=== PATIENT | male | born 1940 | race Two or more races ===

== ENCOUNTER → 2024-10-03 | Outpatient (CLI) | payer MEDICARE, SELFPAY ==
[2024-10-03 08:48] LABS: Basophils # (Auto) 0.1 Thou/mm3 (0.0-0.2); Basophils % (Auto) 1 % (0-2.5); Eosinophils # (Auto) 0.2 Thou/mm3 (0.0-0.5); Eosinophils % (Auto) 2 % (0-10); Hematocrit 44.7 % (41.0-53.0); Hemoglobin 14.4 g/dL (13.5-16.0); Immature Granulocytes % (Auto) 0 % (0-0); Immature Granulocytes Auto 0.03 Thou/mm3 (0.00-0.00); Lymphocytes # (Auto) 3.8 Thou/mm3 (1.0-4.8); Lymphocytes % (Auto) 48 % (10-50); Mean Corpuscular HGB Conc 32.2 g/dl (31.0-37.0); Mean Corpuscular Hemoglobin 26.2 pg (25.0-35.0); Mean Corpuscular Volume 81 fL (80-100); Monocytes # (Auto) 0.6 Thou/mm3 (0.0-0.8); Monocytes % (Auto) 7 % (0-12); Neutrophils # (Auto) 3.3 Thou/mm3 (1.8-7.7); Neutrophils % (Auto) 42 % (37-80); Nucleated Red Blood Cell % 0 /100 WBC (0); Platelet Count 319 Thou/mm3 (140-440); RDW Standard Deviation 44.5 fL (35.1-43.9); White Blood Count 7.9 Thou/mm3 (3.8-10.6)
[2024-10-03 09:15] LABS: Alanine Aminotransferase 25 U/L (10-49); Albumin, Serum 4.5 gm/dL (3.4-4.8); Alkaline Phosphatase 98 U/L (46-116); Anion Gap 7 (7-16); Aspartate Amino Transferase 22 U/L (0-34); BUN/Creatinine Ratio 15 Ratio (12-20); Bilirubin,Direct 0.5 mg/dL (0.0-0.3); Bilirubin,Total 1.8 mg/dL (0.3-1.2); Blood Urea Nitrogen 15 mg/dL (9-23); Calcium 9.4 mg/dL (8.3-10.6); Carbon Dioxide 28.9 mMol/L (20.0-31.0); Cardiac Risk Estimate 2.5 RATIO (4.0-6.7); Chloride 104 mMol/L (98-107); Cholesterol 150 mg/dL (132-200); Free T4 (Free Thyroxine) 1.22 ng/dL (0.89-1.76); Glucose 127 mg/dL (74-106); HDL Cholesterol 60 mg/dL (40-60); LDL Cholesterol,Calculated 59 mg/dL (0-130); Osmolality,Calculated 282 (275-295); Potassium 4.1 mMol/L (3.4-5.1); Sodium 140 mMol/L (136-145); Thyroid Stimulating Hormone 5.01 uIU/mL (0.55-4.78); Triglycerides 155 mg/dL (30-150); eGFR > 60 See Note
== END | disposition home or self-care (01) ==
PROVIDERS: PCP Family Medicine; Referring Provider Internal Medicine Cardiovascular Disease; Visit Provider Internal Medicine Cardiovascular Disease
DX: I10 Essential (primary) hypertension (principal); E78.5 Hyperlipidemia, unspecified; E07.9 Disorder of thyroid, unspecified
CPT/HCPCS: 36415; 80048; 80061; 80076; 84439; 84443; 85025

== ENCOUNTER 2025-01-04 08:02 | Inpatient (IN) | payer MEDICARE, MEDICAID, SELFPAY ==
[2025-01-04] VITALS (7 sets, daily range): BP systolic 130–175; BP diastolic 63–88; PULSE 63–85; RESP 16–20; TEMP 37–37.4; O2SAT 94–96; BMI 26.2; BMI 25.9
--- NOTE | 2025-01-04 08:56 | PD.EDRME ---
Rapid Medical Screening Exam RME Arrival date/time: 01/04/25 08:02 This is an 84-year-old male that comes in with complaints of lower abdominal pain and diarrhea. Patient states this started yesterday. Patient states that he started noticing that his stool started looking red. 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 Patient does not remember exactly what they did but he stated he got treatment for this in [facility]. Patient has a history of hyperlipidemia. I have greeted and performed a focused initial assessment of this patient. Initial appropriate labs ordered at this time. A comprehensive ED assessment and evaluation of the patient and analysis of all test and completion of medical decision making process will be conducted by additional ED provider. Chief Complaint: Abdominal Pain Time Seen by Provider: 01/04/25 08:18 Vital signs: Vital Signs Temperature 98.6 F 01/04/25 08:30 Pulse Rate 80 01/04/25 08:30 Respiratory Rate 18 01/04/25 08:30 Blood Pressure 165/78 H 01/04/25 08:30 Pulse Oximetry (%) 95 01/04/25 08:30 Oxygen Delivery Method Room Air 01/04/25 08:30
[2025-01-04 09:52] LABS: Collection Type, Urine Voided
[2025-01-04 09:59] LABS: Bacteria,Urine Rare; Bilirubin,Urine Negative (Negative); Blood,Urine Trace (Negative); Color,Urine Yellow (Lt Yel-Yel); Culture Indicated,Urine Not Indicated; Glucose, Urine Trace (Negative); Hyaline Casts,Urine < 1 /hpf (0-1); Ketones,Urine Trace (Negative); Leukocyte Esterase,Urine Negative (Negative); Nitrite,Urine Negative (Negative); Protein,Urine 1+ (Neg - Trace); RBC,Urine 3 /hpf (0-3); Specific Gravity,Urine 1.031 (1.001-1.035); Squamous Epithelial Cell,Urine < 1 /hpf (0-5); Urobilinogen,Urine Negative mg/dL (0.0-1.0); WBC,Urine 1 /hpf (0-5)
[2025-01-04 10:01] LABS: Clarity,Urine Hazy (Clear/Hazy)
[2025-01-04 10:13] LABS: Basophils # (Auto) 0.1 Thou/mm3 (0.0-0.2); Basophils % (Auto) 0 % (0-2.5); Eosinophils % (Auto) 0 % (0-10); Hematocrit 46.7 % (41.0-53.0); Hemoglobin 15.5 g/dL (13.5-16.0); Immature Granulocytes % (Auto) 1 % (0-0); Immature Granulocytes Auto 0.19 Thou/mm3 (0.00-0.00); Lymphocytes # (Auto) 1.6 Thou/mm3 (1.0-4.8); Lymphocytes % (Auto) 9 % (10-50); Mean Corpuscular HGB Conc 33.2 g/dl (31.0-37.0); Mean Corpuscular Hemoglobin 26.5 pg (25.0-35.0); Mean Corpuscular Volume 80 fL (80-100); Monocytes # (Auto) 1.5 Thou/mm3 (0.0-0.8); Monocytes % (Auto) 8 % (0-12); Neutrophils # (Auto) 14.9 Thou/mm3 (1.8-7.7); Neutrophils % (Auto) 82 % (37-80); Nucleated Red Blood Cell % 0 /100 WBC (0); Platelet Count 269 Thou/mm3 (140-440); RDW Standard Deviation 42.3 fL (35.1-43.9); Red Blood Count 5.86 Miln/mm3 (4.50-5.90); White Blood Count 18.3 Thou/mm3 (3.8-10.6)
--- NOTE | 2025-01-04 10:20 | XR_ITS ---
Examination: CT abdomen with intravenous contrast CT pelvis with intravenous contrast 2-D coronal reconstructions 2-D sagittal reconstructions Date and time of exam:January 04, 2025 11:24 AM Comparison March 02, 2022 INDICATIONS: Mid abdominal pain rectal bleeding diarrhea beginning 2 days ago, history enlarged common hepatic common bile duct on CT study March 02, 2022. CTDI: vol (mGy) 12.6 DLP: (mGycm) Technique: Multiple axial sections of the abdomen and pelvis have been obtained. 64 slice high-resolution scanner used. 3 mm axial sections have been obtained, post intravenous injection of 60 cc Isovue 370 2-D sagittal, coronal reconstructions obtained. Low dose protocols were performed. One or more of the following dose reduction techniques were used; automated exposure control, adjustment of the mA and/or KV according to patient size, use of iterative reconstruction technique. Findings: Pneumobilia Common hepatic duct 14 mm no definite common hepatic duct or common bile duct stones Spleen is not enlarged No pancreatic or adrenal mass Markedly abnormal colon diffuse wall thickening and inflammatory change 20 mm fat containing of the liver. Normal appendix No bowel obstruction Mild free fluid around the colon in the pelvis Distended urinary bladder Transrectal prostate dimension 5.2 cm IMPRESSION: Enlarged common hepatic common bile duct, recommend hepatobiliary sonography follow-up Diffuse prominent nonspecific colitis pattern, differential would include ulcerative colitis, regional enteritis Normal appendix Significant prostatomegaly
[2025-01-04 10:34] LABS: Alanine Aminotransferase 24 U/L (10-49); Albumin, Serum 4.4 gm/dL (3.4-4.8); Albumin/Globulin Ratio 1.6 (1.2-2.2); Alkaline Phosphatase 82 U/L (46-116); Anion Gap 8 (7-16); Aspartate Amino Transferase 23 U/L (0-34); BUN/Creatinine Ratio 13 Ratio (12-20); Bilirubin,Total 3.6 mg/dL (0.3-1.2); Blood Urea Nitrogen 13 mg/dL (9-23); Calcium 8.8 mg/dL (8.3-10.6); Calcium (Corrected) 8.8 mg/dL (8.5-10.1); Carbon Dioxide 26.2 mMol/L (20.0-31.0); Chloride 104 mMol/L (98-107); Estimated Creatinine Clearance 51.4 mL/min (>60); Globulin 2.8 gm/dL (2.3-3.5); Glucose 171 mg/dL (74-106); Osmolality,Calculated 279 (275-295); Potassium 4.4 mMol/L (3.4-5.1); Sodium 138 mMol/L (136-145); Total Protein 7.2 gm/dL (5.7-8.2); eGFR > 60 See Note
[2025-01-04 10:38] LABS: INR 1.1 (0.9-1.3); Partial Thromboplastin Time 28.4 Seconds (22.0-36.0); Prothrombin Time 12.1 Seconds (9.0-12.2)
[2025-01-04 10:40] LABS: Lactate (Lactic Acid) 1.8 mMol/L (0.4-2.0)
--- NOTE | 2025-01-04 11:47 | XR_ITS ---
Examination: Abdomen sonogram, Limited Date and time of exam: January 04, 2025 1205 hours INDICATIONS: Elevated bilirubin bloody stools beginning 2 days ago Technique: Real-time ramirez scale transabdominal sonographic images of the upper abdomen obtained. Findings: Absent gallbladder Common bile duct 0.4 cm Pancreatic head 3.0 cm Liver 14.1 cm irregular contour fatty infiltration no focal liver lesions Normal hepatopedal portal venous flow Patent IVC IMPRESSION: Absent gallbladder Normal common bile duct Fatty liver primary hepatocellular disease
--- NOTE | 2025-01-04 12:59 | EDNOTE_ITS ---
ED Abdominal Pain RME/HPI General Chief Complaint: Abdominal Pain Stated complaint: STOMACH PAIN/RED DIARRHEA SINCE YESTERDAY Time seen by provider: 01/04/25 08:18 Arrival date/time: 01/04/25 08:02 RME / HPI RME / HPI narrative: 01/04/25 08:02 This is an 84-year-old male that comes in with complaints of lower abdominal pain and diarrhea. Patient states this started yesterday. Patient states that he started noticing that his stool started looking red. 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 Patient does not remember exactly what they did but he stated he got treatment for this in [facility]. Patient has a history of hyperlipidemia. I have greeted and performed a focused initial assessment of this patient. Initial appropriate labs ordered at this time. A comprehensive ED assessment and evaluation of the patient and analysis of all test and completion of medical decision making process will be conducted by additional ED provider. DR. SIDDIQI MAIN ED EVALUATION: 84 year old male with history of hyperlipidemia was presented to the ER with chief complaint of abdominal pain and diarrhea with red blood. Per patient, his pain in his abdomen is diffused, beginning 01/03/27 but is better now. Patient stated he was nausea and had diarrhea every 30 minutes beginning also on 01/03/27. Patient denies chills, fever, and vomiting. Patient denies similar symptoms in the past. Related Data Home Medications ?Medication ?Instructions ?Recorded ?Confirmed atorvastatin 20 mg tablet 10 mg PO QDAY 05/22/2005/22 loratadine 10 mg tablet (Claritin) 10 mg PO QDAY 05/2205/22/20 Allergies Allergy/AdvReac Type Severity Reaction Status Date / Time No Known Allergies Allergy Verified 01/04/25 08:10 Review of Systems Review of Systems Systems Reviewed: All systems reviewed, normal except as documented Narrative Review of Systems: ROS Gen: No fever, no chills, no weight loss EYES: No discharge, no visual changes, no pain HEENT: No ear pain, no congestion, no sore throat PULM: No shortness of breath, no cough, no congestion CV: No chest pain, no dyspnea on exertion, no palpitations GI: +nausea, no vomiting, + red blood diarrhea, + abdominal pain, no constipation : No frequency, no urgency, no dysuria Musc/skel: No joint pain, no back pain Skin: No rash Psyc: No hallucinations, no depression Heme/Lymph: No easy bleeding or bruising tendencies Neuro: No weakness, no headache Past Medical History Past Medical History CARDIAC: Positive Hypercholesterolemia GENITOURINARY: Positive Kidney Stones Social History SMOKING STATUS: Former smoker ED Exam Narrative Physical exam: GENERAL APPEARANCE: alert and oriented x 4, well-developed, well-nourished, no acute distress HEENT: Normocephalic, atraumatic; pupils equal, round, reactive to light; EOMI; mucous membranes pink, moist; oropharynx clear NECK: Supple LUNGS: CTABL; no wheezes, no rales, no rhonchi HEART: Regular rate, regular rhythm; normal S1, S2; no murmurs ABDOMEN: non distended; normal BS; soft, RUQ tenderness, mild voluntary guarding, no rebound; no masses, no organomegaly, no hernia BACK: no CVA tenderness EXTREMITIES: atraumatic; no edema NEUROLOGIC: awake; alert and oriented x4; cranial nerves II-XII grossly intact; no focal sensory or motor deficits PSYCHIATRIC: appropriate mood and affect SKIN: warm, dry, normal color; no rashes Course Quality Measures none Orders Category Date Time Status Admit to Inpatient Status Routine Admission 01/04/25 13:37 Active Patient Condition Routine Admission 01/04/25 13:[address] Screening NOW Care 01/04/25 10:20 Active Miscellaneous Nursing Order NOW Care 01/04/25 13:37 Active Notify provider NEEDED Care 01/04/25 13:[address] abdomen pelvis w con Stat Exams 01/04/25 10:20 Completed US abdomen limited Stat Exams 01/04/25 11:47 Completed CBC Stat Lab 01/04/25 09:51 Completed Comprehensive Metabolic Panel Stat Lab 01/04/25 09:51 Completed Lactate (Lactic Acid) Stat Lab 01/04/25 10:32 Completed PT [Prothrombin Time with INR] Stat Lab 01/04/25 09:51 Completed Partial Thromboplastin Time Stat Lab 01/04/25 09:51 Completed Type and Screen Stat Lab 01/04/25 09:51 Completed Urinalysis, C/S if Indicated Stat Lab 01/04/25 09:41 Completed Piper/Tazo 3.375 gm Premix [Zosyn] Med 01/04/25 12:53 Discontinued 3.375 gm in 50 ml IV X1 Code Status Routine Oth 01/04/25 13:34 Ordered Vital Signs Vital signs: Vital Signs Temperature 98.6 F 01/04/25 08:30 Pulse Rate 80 01/04/25 08:30 Respiratory Rate 18 01/04/25 08:30 Blood Pressure 165/78 H 01/04/25 08:30 Pulse Oximetry (%) 95 01/04/25 08:30 Oxygen Delivery Method Room Air 01/04/25 08:30 Abdominal Pain MDM MDM Narrative MDM Narrative:: I, Stella Coy am scribing for and in the presence of Dr. Siddiqi. Patient data External records reviewed:: [facility] previous records Clinical information provided by:: patient Social determinants that could affect healthcare access:: none Patient has the following chronic illnesses:: hyperlipidemia How is presenting disease/condition affected by chronic disease/condition?: uneffected by Evaluation data The following diagnostics were reviewed and interpreted by me:: lab results and radiology exam(s) Lab and/or radiology exams considered but not ordered:: none Interpretation Summary: Ordering Physician: Ashlie Siddiqi MD Date of Service: 01/04/25 Procedure(s): US abdomen limited Accession Number(s): [id number] cc: Saulo Garcia MD; Milton Hidalgo MD; Ashlie Siddiqi MD~ Examination: Abdomen sonogram, Limited Date and time of exam: January 04, 2025 1205 hours INDICATIONS: Elevated bilirubin bloody stools beginning 2 days ago Technique: Real-time ramirez scale transabdominal sonographic images of the upper abdomen obtained. Findings: Absent gallbladder Common bile duct 0.4 cm Pancreatic head 3.0 cm Liver 14.1 cm irregular contour fatty infiltration no focal liver lesions Normal hepatopedal portal venous flow Patent IVC IMPRESSION: Absent gallbladder Normal common bile duct Fatty liver primary hepatocellular disease Dictated By: Milton Hidalgo MD Signed By: <Electronically signed by Milton Hidalgo MD in OV> 01/04/25 1228 Ordering Physician: Ashlie Siddiqi MD Date of Service: 01/04/25 Procedure(s): CT abdomen pelvis w con Accession Number(s): [id number] cc: Saulo Garcia MD; Milton Hidalgo MD; Ashlie Siddiqi MD~ Examination: CT abdomen with intravenous contrast CT pelvis with intravenous contrast 2-D coronal reconstructions 2-D sagittal reconstructions Date and time of exam:January 04, 2025 11:24 AM Comparison March 02, 2022 INDICATIONS: Mid abdominal pain rectal bleeding diarrhea beginning 2 days ago, history enlarged common hepatic common bile duct on CT study March 02, 2022. CTDI: vol (mGy) 12.6 DLP: (mGycm) 4/78 Technique: Multiple axial sections of the abdomen and pelvis have been obtained. 64 slice high-resolution scanner used. 3 mm axial sections have been obtained, post intravenous injection of 60 cc Isovue 370 2-D sagittal, coronal reconstructions obtained. Low dose protocols were performed. One or more of the following dose reduction techniques were used; automated exposure control, adjustment of the mA and/or KV according to patient size, use of iterative reconstruction technique. Findings: Pneumobilia Common hepatic duct 14 mm no definite common hepatic duct or common bile duct stones Spleen is not enlarged No pancreatic or adrenal mass Markedly abnormal colon diffuse wall thickening and inflammatory change 20 mm fat containing of the liver. Normal appendix No bowel obstruction Mild free fluid around the colon in the pelvis Distended urinary bladder Transrectal prostate dimension 5.2 cm IMPRESSION: Enlarged common hepatic common bile duct, recommend hepatobiliary sonography follow-up Diffuse prominent nonspecific colitis pattern, differential would include ulcerative colitis, regional enteritis Normal appendix Significant prostatomegaly Dictated By: Milton Hidalgo MD Signed By: <Electronically signed by Milton Hidalgo MD in OV> 01/04/25 1206 Medications / Prescriptions Medications or Prescriptions considered but not ordered:: none Medication administrations:: Medication Administration History Acetaminophen (Acetaminophen 325 Mg Tablet) 650 mg PO Q6H PRN PRN Reason: Fever >100.4 or pain Stop: 02/03/25 13:38 Ondansetron HCl (Ondansetron Inj 2 Mg/Ml Inj 2 Ml) 4 mg IV Q6H PRN; Protocol PRN Reason: NAUSEA OR VOMITING Stop: 02/03/25 13:38 Discontinued Medications Piperacillin/Tazobactam/Dextrose (Zosyn) 3.375 gm in 50 mls @ 100 mls/hr IV X1 ONE Stop: 01/04/25 13:22 Last Infusion: 01/04/25 13:30 Dose: Infused Documented By: Admin: 01/04/25 13:02 Dose: 100 mls/hr Documented By: RODGER see above. Consultations Consultation(s) initiated? (list below): Yes Consultation #1 (Physician, Specialty, Details): Admission Resident working with Dr. Heller was made aware of the patient?s HPI, PMHx, lab and/or radiology results. Treatment plan was discussed. Will admit for further evaluation and management. Accepts patient for admission. Time: 12:56 Diagnosis Differential diagnosis abdominal pain: abdominal pain, endometriosis and gastroenteritis Most likely diagnosis given after review of the tests above:: Colitis with rectal bleeding, Leukocytosis Admission Indicated Admission indicated?: indicated Admission Request Was there a request for admission?: Yes Admission Attestation Admission request attestation: Discussed case with [] from Hospitalist service regarding admission. Discussed patients ED course, exam findings, labs, and radiology results. The Hospitalist [agrees,declines] to accept the patient for admission. Disposition Plan Disposition Plan: Admit Discharge Plan Plan Patient Disposition: Admit Acute Care w/in Hospital Problem List Clinical Impression: Colitis with rectal bleeding, Leukocytosis
[2025-01-04] MEDS: PIPER/TAZO 3.375 GM PREMIX 3.375 GM/50 ML BAG IV (13:02)
--- NOTE | 2025-01-04 16:35 | PD.RESHP ---
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 Patient states his UC felt till yesterday when he had many frequent episodes of watery diarrhea. Episodes continued today, patient endorses bright red blood in the more recent bowel movements. Of note, patient recent completed course of amoxicillin for molar infection. Patient denies recent travel, sick contacts, trying new or unusual foods. Patient denies fevers, chills, chest pain, shortness of breath, nausea, vomiting, decreased appetite, abdominal pain. ED COURSE: Labs significant for: WBC 18.3, BUN 13, creatinine 1.0, EGFR greater than 60, lactic acid 1.8, T. bili 3.6. Imaging significant for: CT A/P showing diffuse colitis with free fluid around the colon, distended urinary bladder with significant prostatomegaly. Patient received Zosyn in the ED. PMH: Cholecystocolonic fistula with gallstone ileus, hyperlipidemia PSH: States he had a laparoscopic cholecystectomy, possible procedures relating to gallstone ileus at the same time. SH: Quit smoking 1967, quit drinking 20 years ago, denies any illicit drug use. Allergies:?NKDA Medications: Atorvastatin, Claritin, misoprostol Review of Systems Review of Systems Systems Reviewed: All systems reviewed, normal except as documented Past Medical History Past Medical History Comments PMH COMMENT: PMH: Cholecystocolonic fistula with gallstone ileus, hyperlipidemia PSH: States he had a laparoscopic cholecystectomy, possible procedures relating to gallstone ileus at the same time. SH: Quit smoking 1967, quit drinking 20 years ago, denies any illicit drug use. Allergies:?NKDA Medications: Atorvastatin, Claritin, misoprostol Exam Vital Signs Temp Pulse Resp BP Pulse Ox O2 Del Method 98.8 F 65 16 143/63 H 95 Room Air 01/04/25 16:18 01/04/25 16:18 01/04/25 16:18 01/04/25 16:18 01/04/25 16:18 01/04/25 16:18 Narrative Exam PE: Gen: Well-developed and well-nourished. HEENT: NCAT, PERRLA, EOMI, MMM, anicteric conjunctivae. CVS: normal S1 and S2. RRR. No M/R/G. Resp: CTA B/L. No rhonchi, rales, crackles or wheezing. Abd: soft. Bilateral lower quadrant tenderness. MSK: Good ROM in BUE & BLE. No edema or rash. Neuro: CN II-XII grossly intact. Strength 5/5 in BUE & BLE. Alert and oriented x3. Psych: appropriate mood and affect. Results: Labs 01/05/25 04:25 01/05/25 04:25 Labs: Short CBC 01/04/25 Range/Units 09:51 WBC 18.3 H (3.8-10.6) Thou/mm3 Hgb 15.5 (13.5-16.0) g/dL Hct 46.7 (41.0-53.0) % Plt Count 269 (140-440) Thou/mm3 BMP 01/04/25 09:51 Sodium 138 Potassium 4.4 Chloride 104 Carbon Dioxide 26.2 BUN 13 Creatinine 1.0 Glucose 171 H Calcium 8.8 Liver Function 01/04/25 Range/Units 09:51 Total Bilirubin 3.6 H (0.3-1.2) mg/dL AST 23 (0-34) U/L ALT 24 (10-49) U/L Alkaline Phosphatase 82 (46-116) U/L Albumin 4.4 (3.4-4.8) gm/dL Urine 01/04/25 Range/Units 09:41 Urine Color Yellow (Lt Yel-Yel) Urine Clarity Hazy (Clear/Hazy) Urine pH 6.0 (5.0-7.0) Ur Specific [place] 1.031 (1.001-1.035) Urine Protein 1+ A (Neg - Trace) Urine Glucose (UA) Trace (Negative) Quality Measures Quality Measures VTE prophylaxis Advance care planning discussed with:: patient Medications Home Medications and Allergies Home Medications ?Medication ?Instructions ?Recorded ?Confirmed ?Type atorvastatin 20 mg tablet 10 mg PO QDAY 05/22/20 01/04/25 History loratadine 10 mg tablet (Claritin) 10 mg PO QDAY 05/22/20 01/04/25 History misoprostol 200 mcg tablet 100 mcg PO QDAY 01/04/25 01/04/25 History Allergies Allergy/AdvReac Type Severity Reaction Status Date / Time No Known Allergies Allergy Verified 01/04/25 08:10 Visit Medications Acetaminophen (Acetaminophen 325 Mg Tablet) 650 mg PO Q6H PRN PRN Reason: Fever >100.4 or pain Stop: 02/03/25 13:38 Ciprofloxacin (Ciprofloxacin Hcl 250 Mg Tablet) 500 mg PO BID MARCELINA Stop: 01/11/25 20:59 Hydralazine HCl (Hydralazine Inj 20 Mg/Ml Vial) 10 mg IV X1 PRN PRN Reason: SBP > 180 Stop: 02/03/25 16:04 Metronidazole (Flagyl 500 Mg Iv) 500 mg in 100 mls @ 200 mls/hr IV Q8HR MARCELINA Stop: 01/11/25 16:03 Lactated Ringer's (Lactated Ringers) 1,000 mls @ 75 mls/hr IV .[id number] ONE Stop: 01/05/25 05:24 Ondansetron HCl (Ondansetron Inj 2 Mg/Ml Inj 2 Ml) 4 mg IV Q6H PRN; Protocol PRN Reason: NAUSEA OR VOMITING Stop: 02/03/25 13:38 Discontinued Medications Piperacillin/Tazobactam/Dextrose (Zosyn) 3.375 gm in 50 mls @ 100 mls/hr IV X1 ONE Stop: 01/04/25 13:22 Last Infusion: 01/04/25 13:30 Dose: Infused Assessment & Plan Plan 84 y/o M with PMHx significant for hyperlipidemia, Cholecystocolonic fistula, Calculus of common bile duct with obstruction, Hyperbilirubinemia, Sigmoid thickening, 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 #Acute diarrhea, probable infectious etiology Patient presents with complaint of frequent watery diarrhea x 1 day. Patient reports most recent bowel movements have become bloody (bright red). Patient nonseptic, but has leukocytosis 18.3. Patient recently completed course of amoxicillin. On exam patient has bilateral lower quadrant tenderness. CT A/P shows diffuse colitis with free fluid around colon. Patient is afebrile, lactic acid 1.8. - C. difficile testing, stool culture, stool WBC - Ciprofloxacin 500 mg p.o. twice daily (started 01/04) - Flagyl 500 mg IV every 8 hours (started 01/04) - IVF: Lactated Ringer's at 75 mL/h x 1 L - Stool occult blood - SCDs for DVT prophylaxis, avoiding anticoagulants - Brat diet #Prostatomegaly with urinary retention Patient has distended urinary bladder with significant prostatomegaly on CT imaging. - Quezada cath #Hyperbilirubinemia Patient has bilirubin 3.6, other LFTs WNL. Patient has history of cholecystectomy. - Monitor daily labs #Hyperlipidemia Patient has history as stated. Takes atorvastatin at home. - Resume home atorvastatin 10 mg p.o. daily DVT prophylaxis: SCDs GI prophylaxis: None Diet: Brat diet Lines: Peripheral IV, Quezada cath Code status: Full code Plan of care discussed with attending Dr. Heller. Wang Lerma MD PGY?1 Attending Provider Attestation/Addendum I, Isabel Heller, DO, attest that I was physically present for the almanza portions of the service and evaluated the patient with the resident and I reviewed and discussed the case with the resident and agree with the resident's findings and plans of care as documented above Patient is an 84-year-old male with past medical hyperlipidemia, cholecysto colonic fistula, choledocholithiasis, gallstone ileus who presented to the ED due to abdominal pain. Patient states that he began having multiple episodes of diarrhea over 20 times since yesterday morning. Patient does not recall eating anything out of the ordinary or eating out. He denies any recent sick contacts or household members with similar symptoms. He also denies any recent travel. He denies any fevers or chills. He does admit to having some bright red blood with his watery stools. He also admits to recent antibiotic use and had recently completed a course of amoxicillin for molar. Patient was noted to have a leukocytosis of 18 on presentation and elevated bilirubin 3.6. CT abdomen pelvis was done in the ED showing diffuse nonspecific colitis pattern, distended with bladder and per significant prostatomegaly. Due to concern for possible C. difficile colitis, will order stool studies and cultures. Will admit to med/surg for further workup and medical management of colitis and also cover for infectious colitis with Cipro and Flagyl. Hemoglobin at this time is 15.5. Will give gentle IV fluids due to volume loss. Will trend H/H and obtain stool occult blood test. If hemoglobin continues to downtrend, will consult GI.
[2025-01-04] MEDS: metroNIDAZOLE/NS 500 MG IVPB 500 MG/100 ML BAG 200 MG IV ×2 (16:45→23:15)
[2025-01-04] MEDS: RINGERS LACTATED 1000 ML 1,000 ML 75 ML IV (16:46)
--- NOTE | 2025-01-04 20:03 | PC.NURSE ---
IN AND OUT CATH NOT NEEDED PT URINATED ON OWN
[2025-01-04] MEDS: CIPROFLOXACIN HCL 250 MG TABLET 500 MG PO (23:15)
[2025-01-05] VITALS: BP 125/59; PULSE 67; RESP 18; TEMP 37.7; O2SAT 95
[2025-01-05 01:51] LABS: Stool for WBCs 2+ (Negative)
[2025-01-05 04:00] VITALS: BP 140/66; PULSE 66; RESP 20; TEMP 36.6; O2SAT 95
[2025-01-05 05:20] LABS: Basophils % (Auto) 0 % (0-2.5); Eosinophils % (Auto) 0 % (0-10); Hematocrit 38.5 % (41.0-53.0); Hemoglobin 12.7 g/dL (13.5-16.0); Immature Granulocytes % (Auto) 1 % (0-0); Lymphocytes # (Auto) 2.5 Thou/mm3 (1.0-4.8); Lymphocytes % (Auto) 14 % (10-50); Mean Corpuscular Hemoglobin 26.8 pg (25.0-35.0); Mean Corpuscular Volume 81 fL (80-100); Monocytes # (Auto) 1.7 Thou/mm3 (0.0-0.8); Monocytes % (Auto) 10 % (0-12); Neutrophils % (Auto) 75 % (37-80); Nucleated Red Blood Cell % 0 /100 WBC (0); Platelet Count 305 Thou/mm3 (140-440); RDW Standard Deviation 43.7 fL (35.1-43.9); Red Blood Count 4.74 Miln/mm3 (4.50-5.90); White Blood Count 17.3 Thou/mm3 (3.8-10.6)
[2025-01-05] MEDS: metroNIDAZOLE/NS 500 MG IVPB 500 MG/100 ML BAG 200 MG IV ×3 (05:57→21:01)
[2025-01-05 06:10] LABS: Alanine Aminotransferase 17 U/L (10-49); Albumin, Serum 3.5 gm/dL (3.4-4.8); Albumin/Globulin Ratio 1.6 (1.2-2.2); Alkaline Phosphatase 56 U/L (46-116); Anion Gap 7 (7-16); Aspartate Amino Transferase 16 U/L (0-34); BUN/Creatinine Ratio 16 Ratio (12-20); Bilirubin,Total 2.9 mg/dL (0.3-1.2); Blood Urea Nitrogen 13 mg/dL (9-23); Calcium (Corrected) 8.4 mg/dL (8.5-10.1); Carbon Dioxide 26.6 mMol/L (20.0-31.0); Chloride 103 mMol/L (98-107); Creatinine (Component) 0.8 mg/dL (0.6-1.3); Estimated Creatinine Clearance 64.2 mL/min (>60); Globulin 2.2 gm/dL (2.3-3.5); Glucose 118 mg/dL (74-106); Magnesium 1.9 mg/dL (1.6-2.6); Osmolality,Calculated 274 (275-295); Phosphorous 2.5 mg/dL (2.4-5.1); Potassium 3.6 mMol/L (3.4-5.1); Sodium 137 mMol/L (136-145); Total Protein 5.7 gm/dL (5.7-8.2); eGFR > 60 See Note
[2025-01-05 08:00] VITALS: BP 124/56; PULSE 69; RESP 16; TEMP 36.3; O2SAT 96
[2025-01-05] MEDS: ATORVASTATIN CALCIUM 20 MG TABLET 10 MG PO (08:28)
[2025-01-05] MEDS: CIPROFLOXACIN HCL 250 MG TABLET 500 MG PO ×2 (08:28→20:56)
[2025-01-05 09:21] LABS: Clostridium Difficile PCR Negative (Negative)
[2025-01-05 12:00] VITALS: BP 121/59; PULSE 64; RESP 15; TEMP 36.4; O2SAT 98
--- NOTE | 2025-01-05 13:26 | ESPR_ITS ---
<Statement entered by Gloria Jimenes MD - 01/05/25 13:51> Patient evaluated at bedside. No acute overnight events. Vitals stable: No tachycardia or hypotension. Labs:WBC improved: 18 -> 17.3. Hemoglobin decreased: 15.5 ? 12.7, likely due to ongoing bloody bowel movements. Per nursing and patient report: multiple episodes of bloody bowel movements, no associated diarrhea. C. difficile negative. Plan: Continue current antibiotic regimen: ciprofloxacin and metronidazole for presumed colitis. GI consulted (Dr. Carcamo); will follow up with GI recommendations. Continue close hemodynamic monitoring. Documentation for date of: 01/05/25 Subjective Subjective Interval history: No overnight events. Patient seen examined at bedside, resting comfortably. Patient self reports 2 bowel movements, watery, reports bright red blood. Otherwise doing well, denies fever, chills, chest pain, nausea, vomiting, abdominal pain. Continue workup for colitis, including calprotectin test. Dr. Carcamo consulted regarding GI bleed. Exam Vital Signs Temp Pulse Resp BP Pulse Ox O2 Del Method 97.6 F 64 15 121/59 L 98 Room Air 01/05/25 12:00 01/05/25 12:00 01/05/25 12:00 01/05/25 12:00 01/05/25 12:00 01/05/25 12:00 Narrative Exam PE: Gen: Well-developed and well-nourished. HEENT: NCAT, PERRLA, EOMI, MMM, anicteric conjunctivae. CVS: normal S1 and S2. RRR. No M/R/G. Resp: CTA B/L. No rhonchi, rales, crackles or wheezing. Abd: soft. Bilateral lower quadrant tenderness, improved. MSK: Good ROM in BUE & BLE. No edema or rash. Neuro: CN II-XII grossly intact. Strength 5/5 in BUE & BLE. Alert and oriented x3. Psych: appropriate mood and affect. Objective Labs 01/06/25 05:00 01/06/25 05:00 Labs: Laboratory Results - last 24 hr 01/05/25 01/05/25 00:45 04: WBC 17.3 H RBC 4.74 Hgb 12.7 L D Hct 38.5 L MCV 81 MCH 26.8 MCHC 33.0 RDW Std Deviation 43.7 Plt Count 305 D Neut % (Auto) 75 Lymph % (Auto) 14 [place] % (Auto) 10 Eos % (Auto) 0 Baso % (Auto) 0 Neut # (Auto) 13.0 H Lymph # (Auto) 2.5 [place] # (Auto) 1.7 H Eos # (Auto) 0.0 Baso # (Auto) 0.0 Immature Gran # (Auto) 0.10 H Absolute Nucleated RBC 0.00 Immature Gran % 1 H Nucleated RBC % 0 Sodium 137 Potassium 3.6 D Chloride 103 Carbon Dioxide 26.6 Anion Gap 7 BUN 13 Creatinine 0.8 Estim Creat Clear Calc 64.2 eGFR > 60 BUN/Creatinine Ratio 16 Glucose 118 H D Calculated Osmolality 274 L Calcium 8.0 L Corrected Calcium 8.4 L Phosphorus 2.5 Magnesium 1.9 Total Bilirubin 2.9 H D AST 16 ALT 17 Alkaline Phosphatase 56 D Total Protein 5.7 Albumin 3.5 D Globulin 2.2 L Albumin/Globulin Ratio 1.6 Stool for White Cells 2+ A Stl C. diff Tox B Gene Negative Quality Measures Quality Measures VTE prophylaxis Advance care planning discussed with:: patient Assessment & Plan Assessment Current Active Medications: Generic Name Dose Route Start Last Admin Trade Name Freq PRN Reason Stop Dose Admin Acetaminophen 650 mg 01/04/25 13:39 Acetaminophen 325 Mg Tablet PO 02/03/25 13:38 Q6H PRN Fever >100.4 or pain Atorvastatin Calcium 10 mg 01/05/25 09:00 01/05/25 08:28 Atorvastatin Calcium 20 Mg Tablet PO 02/04/25 08:59 10 mg QDAY MARCELINA Administration Ciprofloxacin 500 mg 01/04/25 21:00 01/05/25 08:28 Ciprofloxacin Hcl 250 Mg Tablet PO 01/11/25 20:59 500 mg BID MARCELINA Administration Hydralazine HCl 10 mg 01/04/25 16:05 Hydralazine Inj 20 Mg/Ml Vial IV 02/03/25 16:04 X1 PRN SBP > 180 Metronidazole 500 mg in 100 mls @ 200 mls/hr 01/04/25 16:04 01/05/25 13:17 Flagyl 500 Mg Iv IV 01/11/25 16:03 200 mls/hr Q8HR MARCELINA Administration Ondansetron HCl 4 mg 01/04/25 13:39 Ondansetron Inj 2 Mg/Ml Inj 2 Ml IV 02/03/25 13:38 Q6H PRN NAUSEA OR VOMITING Protocol Plan 84 y/o M with PMHx significant for hyperlipidemia, Cholecystocolonic fistula, 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 #Acute diarrhea, probable infectious etiology #GI bleed Patient presents with complaint of frequent watery diarrhea x 1 day. Patient reports most recent bowel movements have become bloody (bright red). Patient nonseptic, but has leukocytosis 18.3. Patient recently completed course of amoxicillin. On exam patient has bilateral lower quadrant tenderness. CT A/P shows diffuse colitis with free fluid around colon. Patient is afebrile, lactic acid 1.8. Stool occult blood positive. C. difficile testing negative, stool WBC 2+. Additional testing ordered for colitis workup. Dr. Carcamo consulted due to GI bleed. - Stool culture, stool calprotectin - Ciprofloxacin 500 mg p.o. twice daily (started 01/04) - Flagyl 500 mg IV every 8 hours (started 01/04) - SCDs for DVT prophylaxis, avoiding anticoagulants - Brat diet - Blood cultures ordered, follow-up #Prostatomegaly with urinary retention Patient has distended urinary bladder with significant prostatomegaly on CT imaging. Initial plan to place Quezada cath, however patient had urination, Quezada cath was not placed. - Monitor for signs of urinary retention #Hyperbilirubinemia Patient has bilirubin 3.6, other LFTs WNL. Patient has history of cholecystectomy. Improved on follow-up labs. - Monitor daily labs #Hyperlipidemia Patient has history as stated. Takes atorvastatin at home. - Resume home atorvastatin 10 mg p.o. daily DVT prophylaxis: SCDs GI prophylaxis: None Diet: BRAT diet Lines: Peripheral IV Code status: Full code Plan of care discussed with senior resident Dr. Jimenes and attending Dr. Heller. Wang Lerma MD PGY?1 Attending Provider Attestation/Addendum Isabel Pyle, DO, attest that I was physically present for the almanza portions of the service and evaluated the patient with the resident and I reviewed and discussed the case with the resident and agree with the resident's findings and plans of care as documented above Patient seen and evaluated this AM. Patient continues to have lower abdominal pain. Patient reports having less episodes of diarrhea. Abdomen is soft and nondistended on palpation. Will consult GI due to drop in hemoglobin. Will continue with cipro and flagyl. Will continue to trend Hgb.
[2025-01-05 16:00] VITALS: BP 131/61; PULSE 68; RESP 17; TEMP 37.2; O2SAT 94
--- NOTE | 2025-01-05 19:56 | PD.IMCONS ---
HPI Data of Consult Requesting Physician: Isabel Heller DO Primary Care Provider: Saulo Garcia MD Consult Narrative Reason for consult: Diarrhea with blood and abnormal CT AP History of present illness: 84 years male presented to the hospital with diarrhea which turned bloody CT scan of the abdomen pelvis without contrast showed common hepatic duct 14 mm pneumobilia nonspecific colitis Ultrasound abdomen showed absent gallbladder irregular contour of the of the liver with fatty infiltration and hepatomegaly Patient does have a history of cholecystectomy cholecysto colonic fistula requiring endoscopic retrograde sphincterotomy removal of the stone in [facility] in [place] few years back His current bilirubin admission was 3.6 which has gone down to 2.9 rest of the LFTs are normal Patient has already been started on IV Flagyl and ciprofloxacin by the internal medicine team cc:: cc: Isabel Heller DO Review of Systems Review of Systems Systems Reviewed: All systems reviewed, normal except as documented Past Medical History Surgical History OTHER SURGICAL HX: As in the history of present illness Cholecystectomy Cholecysto colonic fistula requiring endoscopic retrograde sphincterotomy with extraction of the common bile duct stone and closure of the fistula on its own Meds Home Medications and Allergies Home Medications ?Medication ?Instructions ?Recorded ?Confirmed ?Type atorvastatin 20 mg tablet 10 mg PO QDAY 05/22/20 01/04/25 History loratadine 10 mg tablet (Claritin) 10 mg PO QDAY 05/22/20 01/04/25 History misoprostol 200 mcg tablet 100 mcg PO QDAY 01/04/25 01/04/25 History Allergies Allergy/AdvReac Type Severity Reaction Status Date / Time No Known Allergies Allergy Verified 01/04/25 08:10 Exam Vital Signs Temp Pulse Resp BP Pulse Ox O2 Del Method 98.9 F 68 17 131/61 H 94 L Room Air 01/05/25 16:00 01/05/25 16:00 01/05/25 16:00 01/05/25 16:00 01/05/25 16:00 01/05/25 16:00 Routine Respiratory Exam Comments: Normal to auscultation Routine Abdominal Exam Comments: Minimally tender upper abdomen active bowel sounds Results Labs 01/05/25 04:25 01/05/25 04:25 Labs: Short CBC 01/05/25 Range/Units 04: WBC 17.3 H (3.8-10.6) Thou/mm3 Hgb 12.7 L D (13.5-16.0) g/dL Hct 38.5 L (41.0-53.0) % Plt Count 305 D (140-440) Thou/mm3 BMP 01/05/25 04:25 Sodium 137 Potassium 3.6 D Chloride 103 Carbon Dioxide 26.6 BUN 13 Creatinine 0.8 Glucose 118 H D Calcium 8.0 L Liver Function 01/05/25 Range/Units 04:25 Total Bilirubin 2.9 H D (0.3-1.2) mg/dL AST 16 (0-34) U/L ALT 17 (10-49) U/L Alkaline Phosphatase 56 D (46-116) U/L Albumin 3.5 D (3.4-4.8) gm/dL Assessment and Plan Additional Assessment & Plan Additional Plan: # Bloody diarrhea most likely infectious in etiology unlikely ischemic or inflammatory Plan Continue Flagyl and ciprofloxacin IV Wait for the results of the stool test And if the stool test are negative particularly culture and sensitivity and C. 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
[2025-01-05 20:00] VITALS: BP 141/60; PULSE 71; RESP 18; TEMP 36.9; O2SAT 96
[2025-01-05 21:26] LABS: Sed Rate (ESR) 18 mm/hr (0-20)
[2025-01-05 21:47] LABS: C-Reactive Protein 8.2 mg/dL (0.0-0.9)
[2025-01-06] VITALS (14 sets, daily range): BP systolic 127–178; BP diastolic 61–95; PULSE 58–96; RESP 16–20; TEMP 36.3–37.2; O2SAT 94–97; BMI 25.7
[2025-01-06] MEDS: metroNIDAZOLE/NS 500 MG IVPB 500 MG/100 ML BAG 200 MG IV ×3 (05:36→21:07)
[2025-01-06 06:27] LABS: Basophils # (Auto) 0.1 Thou/mm3 (0.0-0.2); Basophils % (Auto) 1 % (0-2.5); Eosinophils # (Auto) 0.1 Thou/mm3 (0.0-0.5); Eosinophils % (Auto) 1 % (0-10); Hemoglobin 12.7 g/dL (13.5-16.0); Immature Granulocytes % (Auto) 0 % (0-0); Immature Granulocytes Auto 0.04 Thou/mm3 (0.00-0.00); Lymphocytes # (Auto) 3.2 Thou/mm3 (1.0-4.8); Lymphocytes % (Auto) 32 % (10-50); Mean Corpuscular HGB Conc 31.8 g/dl (31.0-37.0); Mean Corpuscular Volume 82 fL (80-100); Monocytes % (Auto) 9 % (0-12); Neutrophils # (Auto) 5.8 Thou/mm3 (1.8-7.7); Neutrophils % (Auto) 57 % (37-80); Nucleated Red Blood Cell % 0 /100 WBC (0); Platelet Count 254 Thou/mm3 (140-440); RDW Standard Deviation 44.5 fL (35.1-43.9); Red Blood Count 4.89 Miln/mm3 (4.50-5.90); White Blood Count 10.2 Thou/mm3 (3.8-10.6)
[2025-01-06 06:56] LABS: Alanine Aminotransferase 17 U/L (10-49); Albumin, Serum 3.7 gm/dL (3.4-4.8); Albumin/Globulin Ratio 1.5 (1.2-2.2); Alkaline Phosphatase 58 U/L (46-116); Anion Gap 8 (7-16); Aspartate Amino Transferase 18 U/L (0-34); BUN/Creatinine Ratio 11 Ratio (12-20); Bilirubin,Total 2.3 mg/dL (0.3-1.2); Blood Urea Nitrogen 10 mg/dL (9-23); Calcium 8.1 mg/dL (8.3-10.6); Calcium (Corrected) 8.3 mg/dL (8.5-10.1); Carbon Dioxide 27.8 mMol/L (20.0-31.0); Chloride 101 mMol/L (98-107); Creatinine (Component) 0.9 mg/dL (0.6-1.3); Estimated Creatinine Clearance 57.1 mL/min (>60); Globulin 2.4 gm/dL (2.3-3.5); Glucose 108 mg/dL (74-106); Osmolality,Calculated 273 (275-295); Potassium 3.4 mMol/L (3.4-5.1); Sodium 137 mMol/L (136-145); Total Protein 6.1 gm/dL (5.7-8.2); eGFR > 60 See Note
[2025-01-06] MEDS: ATORVASTATIN CALCIUM 20 MG TABLET 10 MG PO (08:10)
[2025-01-06] MEDS: CIPROFLOXACIN HCL 250 MG TABLET 500 MG PO ×2 (08:10→20:20)
[2025-01-06] MEDS: CALCIUM CARBONATE 600 MG TABLET PO (10:16)
--- NOTE | 2025-01-06 13:44 | ESPR_ITS ---
<Statement entered by Gloria Jimenes MD - 01/06/25 15:27> Patient was seen and examined at the bedside. No acute overnight events reported. Patient remains hemodynamically stable. Hemoglobin decreased from 15 to 12.7. Patient has melena. C. difficile test is negative. GI service is involved. Dr. Carcamo recommended the patient remain NPO in preparation for an EGD, likely to be performed today. A colonoscopy may be considered based on EGD findings. Currently on ciprofloxacin and Flagyl. Total bilirubin will be closely monitored. If it continues to trend upward, GI has recommended proceeding with an MRCP. Continue IV antibiotics: ciprofloxacin and Flagyl. Maintain NPO status per GI recommendation. Monitor hemoglobin levels and clinical signs of ongoing GI bleeding. Follow up on stool culture results. Follow up with GI for procedural updates and additional recommendations. Documentation for date of: 01/06/25 Subjective Subjective Interval history: No overnight events. Patient seen and examined at bedside, resting comfortably. Patient reports watery bowel movement, did not see bright red blood but black stool. Minimal abdominal pain. Otherwise feels well, denies fever, chills, chest pain, shortness of breath, nausea, vomiting. Dr. Carcamo will perform EGD today, possible colonoscopy depending on results. Follow-up pending stool testing. Exam Vital Signs Temp Pulse Resp BP Pulse Ox O2 Del Method 98.9 F 81 16 157/68 H 97 Room Air 01/06/25 11:39 01/06/25 11:39 01/06/25 11:39 01/06/25 11:39 01/06/25 11:39 01/06/25 04:00 Narrative Exam PE: Gen: Well-developed and well-nourished. HEENT: NCAT, PERRLA, EOMI, MMM, anicteric conjunctivae. CVS: normal S1 and S2. RRR. No M/R/G. Resp: CTA B/L. No rhonchi, rales, crackles or wheezing. Abd: soft. Bilateral lower quadrant tenderness, improved, minimal. MSK: Good ROM in BUE & BLE. No edema or rash. Neuro: CN II-XII grossly intact. Strength 5/5 in BUE & BLE. Alert and oriented x3. Psych: appropriate mood and affect. Objective Labs 01/06/25 05:00 01/06/25 05:00 Labs: Laboratory Results - last 24 hr 01/05/25 01/06/25 21:04 05:00 WBC 10.2 D RBC 4.89 Hgb 12.7 L Hct 40.0 L MCV 82 MCH 26.0 MCHC 31.8 RDW Std Deviation 44.5 H Plt Count 254 D Neut % (Auto) 57 Lymph % (Auto) 32 [place] % (Auto) 9 Eos % (Auto) 1 Baso % (Auto) 1 Neut # (Auto) 5.8 Lymph # (Auto) 3.2 [place] # (Auto) 1.0 H Eos # (Auto) 0.1 Baso # (Auto) 0.1 Immature Gran # (Auto) 0.04 H Absolute Nucleated RBC 0.00 Immature Gran % 0 Nucleated RBC % 0 ESR 18 Sodium 137 Potassium 3.4 Chloride 101 Carbon Dioxide 27.8 Anion Gap 8 BUN 10 Creatinine 0.9 Estim Creat Clear Calc 57.1 L eGFR > 60 BUN/Creatinine Ratio 11 L Glucose 108 H Calculated Osmolality 273 L Calcium 8.1 L Corrected Calcium 8.3 L Total Bilirubin 2.3 H D AST 18 ALT 17 Alkaline Phosphatase 58 C-Reactive Prot, Quant 8.2 H Total Protein 6.1 Albumin 3.7 Globulin 2.4 Albumin/Globulin Ratio 1.5 Quality Measures Quality Measures VTE prophylaxis Advance care planning discussed with:: patient Assessment & Plan Assessment Current Active Medications: Generic Name Dose Route Start Last Admin Trade Name Freq PRN Reason Stop Dose Admin Acetaminophen 650 mg 01/04/25 13:39 Acetaminophen 325 Mg Tablet PO 02/03/25 13:38 Q6H PRN Fever >100.4 or pain Atorvastatin Calcium 10 mg 01/05/25 09:00 01/06/25 08:10 Atorvastatin Calcium 20 Mg Tablet PO 02/04/25 08:59 10 mg QDAY MARCELINA Administration Calcium Carbonate 600 mg 01/06/25 09:00 01/06/25 10:16 Calcium Carbonate 600 Mg Tablet PO 02/05/25 08:59 600 mg QDAY MARCELINA Administration Ciprofloxacin 500 mg 01/04/25 21:00 01/06/25 08:10 Ciprofloxacin Hcl 250 Mg Tablet PO 01/11/25 20:59 500 mg BID MARCELINA Administration Hydralazine HCl 10 mg 01/04/25 16:05 Hydralazine Inj 20 Mg/Ml Vial IV 02/03/25 16:04 X1 PRN SBP > 180 Metronidazole 500 mg in 100 mls @ 200 mls/hr 01/04/25 16:04 01/06/25 13:42 Flagyl 500 Mg Iv IV 01/11/25 16:03 200 mls/hr Q8HR MARCELINA Administration Ondansetron HCl 4 mg 01/04/25 13:39 Ondansetron Inj 2 Mg/Ml Inj 2 Ml IV 02/03/25 13:38 Q6H PRN NAUSEA OR VOMITING Protocol Plan 84 y/o M with PMHx significant for hyperlipidemia, Cholecystocolonic fistula, Calculus of common bile duct with obstruction, Hyperbilirubinemia, Sigmoid thickening, 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 #Acute diarrhea, probable infectious etiology #GI bleed Patient presents with complaint of frequent watery diarrhea x 1 day. Patient reports most recent bowel movements have become bloody (bright red). Patient nonseptic, but has leukocytosis 18.3. Patient recently completed course of amoxicillin. On exam patient has bilateral lower quadrant tenderness. CT A/P shows diffuse colitis with free fluid around colon. Patient is afebrile, lactic acid 1.8. Stool occult blood positive. C. difficile testing negative, stool WBC 2+. Additional testing ordered for colitis workup. Dr. Carcamo consulted due to GI bleed. Patient reported improvement in diarrhea, less frequent bowel movements, but now reports melena. - Stool culture, stool calprotectin, Giardia antigen - Ciprofloxacin 500 mg p.o. twice daily (started 01/04) - Flagyl 500 mg IV every 8 hours (started 01/04) - SCDs for DVT prophylaxis, avoiding anticoagulants - Brat diet - Blood cultures ordered, follow-up - EGD today #Prostatomegaly with urinary retention Patient has distended urinary bladder with significant prostatomegaly on CT imaging. Initial plan to place Quezada cath, however patient had urination, Quezada cath was not placed. - Monitor for signs of urinary retention #Hyperbilirubinemia Patient has bilirubin 3.6, other LFTs WNL. Patient has history of cholecystectomy. Improved on follow-up labs. - Monitor daily labs #Hyperlipidemia Patient has history as stated. Takes atorvastatin at home. - Resume home atorvastatin 10 mg p.o. daily DVT prophylaxis: SCDs GI prophylaxis: None Diet: BRAT diet Lines: Peripheral IV Code status: Full code Plan of care discussed with senior resident Dr. Jimenes and attending Dr. Heller. Wang Lerma MD PGY?1 Attending Provider Attestation/Addendum Isabel Pyle DO, attest that I was physically present for the almanza portions of the service and evaluated the patient with the resident and I reviewed and discussed the case with the resident and agree with the resident's findings and plans of care as documented above Patient seen eval this a.m. He states that he has had reduced episodes of diarrhea and pain is much less. Leukocytosis has improved with IV antibiotics. However, he endorsed having some dark stool this morning. GI was updated regarding patient's complaint of melena. Plans for endoscopy this afternoon. Will place patient n.p.o. at this time. Continue with current management and follow-up endoscopy results. Hemoglobin remains on changed from yesterday. Patient remains hemodynamically stable as well. Patient denies any nausea, vomiting, fevers or chills otherwise.
[2025-01-06 15:30] LABS: Stool for WBCs Negative (Negative)
--- NOTE | 2025-01-06 16:01 | PC.SS ---
Patient is alert/oriented. He is able to verify demographics. Patient was admitted for diarrhea. Patient states he's independent with ADL's. He resides with a roommate. Patient does not possess any DME. Patient is pending an EGD. He states his nephew is his alt medical decision maker: Chance Garcia. He does not have his contact number. PCP: Dr. Dina Garcia. Patient confirmed his friend will be able to transport home.
[2025-01-06 16:45] LABS: Clostridium Difficile PCR Negative (Negative)
[2025-01-06] MEDS: NA SU/NAHCO3/KC/PEG (Golytely) 4,000 ML BTL 4000 ML PO (20:56)
[2025-01-07] VITALS (18 sets, daily range): BP systolic 126–169; BP diastolic 61–74; PULSE 60–81; RESP 10–18; TEMP 36.1–37.1; O2SAT 92–98
[2025-01-07] MEDS: metroNIDAZOLE/NS 500 MG IVPB 500 MG/100 ML BAG 200 MG IV ×3 (05:28→21:23)
[2025-01-07 06:13] LABS: Basophils # (Auto) 0.1 Thou/mm3 (0.0-0.2); Basophils % (Auto) 1 % (0-2.5); Eosinophils # (Auto) 0.1 Thou/mm3 (0.0-0.5); Eosinophils % (Auto) 2 % (0-10); Hematocrit 39.3 % (41.0-53.0); Hemoglobin 13.2 g/dL (13.5-16.0); Immature Granulocytes % (Auto) 0 % (0-0); Immature Granulocytes Auto 0.03 Thou/mm3 (0.00-0.00); Lymphocytes # (Auto) 2.3 Thou/mm3 (1.0-4.8); Lymphocytes % (Auto) 30 % (10-50); Mean Corpuscular HGB Conc 33.6 g/dl (31.0-37.0); Mean Corpuscular Hemoglobin 26.7 pg (25.0-35.0); Mean Corpuscular Volume 80 fL (80-100); Monocytes # (Auto) 0.8 Thou/mm3 (0.0-0.8); Monocytes % (Auto) 10 % (0-12); Neutrophils # (Auto) 4.3 Thou/mm3 (1.8-7.7); Neutrophils % (Auto) 57 % (37-80); Nucleated Red Blood Cell % 0 /100 WBC (0); Platelet Count 272 Thou/mm3 (140-440); RDW Standard Deviation 42.5 fL (35.1-43.9); Red Blood Count 4.94 Miln/mm3 (4.50-5.90); White Blood Count 7.6 Thou/mm3 (3.8-10.6)
[2025-01-07 06:41] LABS: Alanine Aminotransferase 15 U/L (10-49); Albumin, Serum 3.6 gm/dL (3.4-4.8); Albumin/Globulin Ratio 1.5 (1.2-2.2); Alkaline Phosphatase 60 U/L (46-116); Anion Gap 10 (7-16); Aspartate Amino Transferase 22 U/L (0-34); BUN/Creatinine Ratio 10 Ratio (12-20); Bilirubin,Total 1.8 mg/dL (0.3-1.2); Blood Urea Nitrogen 9 mg/dL (9-23); Calcium 8.3 mg/dL (8.3-10.6); Calcium (Corrected) 8.6 mg/dL (8.5-10.1); Chloride 106 mMol/L (98-107); Creatinine (Component) 0.9 mg/dL (0.6-1.3); Estimated Creatinine Clearance 57.1 mL/min (>60); Globulin 2.4 gm/dL (2.3-3.5); Glucose 104 mg/dL (74-106); Osmolality,Calculated 279 (275-295); Potassium 3.8 mMol/L (3.4-5.1); Sodium 141 mMol/L (136-145); eGFR > 60 See Note
[2025-01-07] MEDS: ATORVASTATIN CALCIUM 20 MG TABLET 10 MG PO (09:32)
[2025-01-07] MEDS: CIPROFLOXACIN HCL 250 MG TABLET 500 MG PO ×2 (09:32→21:22)
[2025-01-07] MEDS: CALCIUM CARBONATE 600 MG TABLET PO (09:32)
[2025-01-07] MEDS: NA SU/NAHCO3/KC/PEG (Golytely) 4,000 ML BTL 4000 ML PO (13:02)
--- NOTE | 2025-01-07 14:32 | PC.SS ---
Rounding note: colonoscopy pending.
--- NOTE | 2025-01-07 18:12 | ESPR_ITS ---
Documentation for date of: 01/07/25 Subjective Subjective Interval history: No overnight events. Patient seen and examined at bedside, resting comfortably. Continues to endorse mild abdominal tenderness, has diarrhea but is currently taking GoLytely prep for colonoscopy. Denies fevers, chills, chest pain, nausea, vomiting. 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 Plan for colonoscopy tonight. Exam Vital Signs Temp Pulse Resp BP Pulse Ox O2 Del Method O2 Flow Rate 97.0 F 63 17 155/73 H 98 Room Air 2 01/07/25 16:00 01/07/25 16:00 01/07/25 16:00 01/07/25 16:00 01/07/25 16:01/07/25 16:01/07/25 12:00 Narrative Exam PE: Gen: Well-developed and well-nourished. HEENT: NCAT, PERRLA, EOMI, MMM, anicteric conjunctivae. CVS: normal S1 and S2. RRR. No M/R/G. Resp: CTA B/L. No rhonchi, rales, crackles or wheezing. Abd: soft. Bilateral lower quadrant tenderness, minimal. MSK: Good ROM in BUE & BLE. No edema or rash. Neuro: CN II-XII grossly intact. Strength 5/5 in BUE & BLE. Alert and oriented x3. Psych: appropriate mood and affect. Objective Labs 01/08/25 04:55 01/08/25 04:55 Labs: Laboratory Results - last 24 hr 01/07/25 05:15 WBC 7.6 RBC 4.94 Hgb 13.2 L Hct 39.3 L MCV 80 MCH 26.7 MCHC 33.6 RDW Std Deviation 42.5 Plt Count 272 Neut % (Auto) 57 Lymph % (Auto) 30 [place] % (Auto) 10 Eos % (Auto) 2 Baso % (Auto) 1 Neut # (Auto) 4.3 Lymph # (Auto) 2.3 [place] # (Auto) 0.8 Eos # (Auto) 0.1 Baso # (Auto) 0.1 Immature Gran # (Auto) 0.03 H Absolute Nucleated RBC 0.00 Immature Gran % 0 Nucleated RBC % 0 Sodium 141 Potassium 3.8 Chloride 106 Carbon Dioxide 25.0 Anion Gap 10 BUN 9 Creatinine 0.9 Estim Creat Clear Calc 57.1 L eGFR > 60 BUN/Creatinine Ratio 10 L Glucose 104 Calculated Osmolality 279 Calcium 8.3 Corrected Calcium 8.6 Total Bilirubin 1.8 H D AST 22 ALT 15 Alkaline Phosphatase 60 Total Protein 6.0 Albumin 3.6 Globulin 2.4 Albumin/Globulin Ratio 1.5 Quality Measures Quality Measures VTE prophylaxis Advance care planning discussed with:: patient Assessment & Plan Assessment Current Active Medications: Generic Name Dose Route Start Last Admin Trade Name Freq PRN Reason Stop Dose Admin Acetaminophen 650 mg 01/04/25 13:39 Acetaminophen 325 Mg Tablet PO 02/03/25 13:38 Q6H PRN Fever >100.4 or pain Atorvastatin Calcium 10 mg 01/05/25 09:00 01/07/25 09:32 Atorvastatin Calcium 20 Mg Tablet PO 02/04/25 08:59 10 mg QDAY MARCELINA Administration Calcium Carbonate 600 mg 01/06/25 09:00 01/07/25 09:32 Calcium Carbonate 600 Mg Tablet PO 02/05/25 08:59 600 mg QDAY MARCELINA Administration Ciprofloxacin 500 mg 01/04/25 21:00 01/07/25 09:32 Ciprofloxacin Hcl 250 Mg Tablet PO 01/11/25 20:59 500 mg BID MARCELINA Administration Hydralazine HCl 10 mg 01/04/25 16:05 Hydralazine Inj 20 Mg/Ml Vial IV 02/03/25 16:04 X1 PRN SBP > 180 Metronidazole 500 mg in 100 mls @ 200 mls/hr 01/04/25 16:04 01/07/25 13:51 Flagyl 500 Mg Iv IV 01/11/25 16:03 200 mls/hr Q8HR MARCELINA Administration Ondansetron HCl 4 mg 01/04/25 13:39 Ondansetron Inj 2 Mg/Ml Inj 2 Ml IV 02/03/25 13:38 Q6H PRN NAUSEA OR VOMITING Protocol Plan 84 y/o M with PMHx significant for hyperlipidemia, Cholecystocolonic fistula, Calculus of common bile duct with obstruction, Hyperbilirubinemia, Sigmoid thickening, 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 #Acute diarrhea, probable infectious etiology #GI bleed Patient presents with complaint of frequent watery diarrhea x 1 day. Patient reports most recent bowel movements have become bloody (bright red). Patient nonseptic, but has leukocytosis 18.3. Patient recently completed course of amoxicillin. On exam patient has bilateral lower quadrant tenderness. CT A/P shows diffuse colitis with free fluid around colon. Patient is afebrile, lactic acid 1.8. Stool occult blood positive. C. difficile testing negative, stool WBC 2+. Additional testing ordered for colitis workup. Dr. Carcamo consulted due to GI bleed. Patient reported improvement in diarrhea, less frequent bowel movements, but now reports melena. EGD showed Jaramillo's esophagus, gastritis. No clear source of bleeding found. Patient started GoLytely prep with plan for colonoscopy. BRAT diet changed to clear liquid diet for now. - Stool culture, stool calprotectin, Giardia antigen - Ciprofloxacin 500 mg p.o. twice daily (started 01/04) - Flagyl 500 mg IV every 8 hours (started 01/04) - SCDs for DVT prophylaxis, avoiding anticoagulants - Blood cultures ordered, follow-up - Colonoscopy #Prostatomegaly with urinary retention Patient has distended urinary bladder with significant prostatomegaly on CT imaging. Initial plan to place Quezada cath, however patient had urination, Quezada cath was not placed. - Monitor for signs of urinary retention #Hyperbilirubinemia Patient has bilirubin 3.6, other LFTs WNL. Patient has history of cholecystectomy. Improved on follow-up labs. - Monitor daily labs #Hyperlipidemia Patient has history as stated. Takes atorvastatin at home. - Resume home atorvastatin 10 mg p.o. daily DVT prophylaxis: SCDs GI prophylaxis: None Diet: Clear liquid diet Lines: Peripheral IV Code status: Full code Plan of care discussed with attending Dr. Heller. Wang Lerma MD PGY?1 Attending Provider Attestation/Addendum Isabel Pyle, DO, attest that I was physically present for the almanza portions of the service and evaluated the patient with the resident and I reviewed and discussed the case with the resident and agree with the resident's findings and plans of care as documented above Patient seen and evaluated this AM. He states he is doing well with mild discomfort in his lower abdomen. Patient has been undergoing colon prep for colonoscopy this evening. Will f/u with results and anticipate DC within next 24-48h. H/H otherwise stable.
--- NOTE | 2025-01-07 21:10 | SUR.PHASEI ---
report called to ryan benito ma. transported to room via [facility]. vss. breathing even and unlabored. no c/o pain or nausea.
[2025-01-08] VITALS: BP 141/63; PULSE 66; RESP 19; TEMP 36.1; O2SAT 97
[2025-01-08 04:00] VITALS: BP 138/72; PULSE 76; RESP 18; TEMP 37.2; O2SAT 96
[2025-01-08] MEDS: metroNIDAZOLE/NS 500 MG IVPB 500 MG/100 ML BAG 200 MG IV ×2 (05:10→13:58)
[2025-01-08 05:56] LABS: Basophils # (Auto) 0.1 Thou/mm3 (0.0-0.2); Basophils % (Auto) 2 % (0-2.5); Eosinophils # (Auto) 0.2 Thou/mm3 (0.0-0.5); Eosinophils % (Auto) 3 % (0-10); Hematocrit 41.4 % (41.0-53.0); Hemoglobin 13.4 g/dL (13.5-16.0); Immature Granulocytes % (Auto) 1 % (0-0); Immature Granulocytes Auto 0.03 Thou/mm3 (0.00-0.00); Lymphocytes # (Auto) 2.2 Thou/mm3 (1.0-4.8); Lymphocytes % (Auto) 37 % (10-50); Mean Corpuscular HGB Conc 32.4 g/dl (31.0-37.0); Mean Corpuscular Volume 80 fL (80-100); Monocytes # (Auto) 0.6 Thou/mm3 (0.0-0.8); Monocytes % (Auto) 10 % (0-12); Neutrophils # (Auto) 2.9 Thou/mm3 (1.8-7.7); Neutrophils % (Auto) 48 % (37-80); Nucleated Red Blood Cell % 0 /100 WBC (0); Platelet Count 303 Thou/mm3 (140-440); RDW Standard Deviation 42.8 fL (35.1-43.9); Red Blood Count 5.15 Miln/mm3 (4.50-5.90)
[2025-01-08 06:25] LABS: Alanine Aminotransferase 13 U/L (10-49); Albumin, Serum 3.5 gm/dL (3.4-4.8); Albumin/Globulin Ratio 1.6 (1.2-2.2); Alkaline Phosphatase 56 U/L (46-116); Anion Gap 9 (7-16); Aspartate Amino Transferase 19 U/L (0-34); BUN/Creatinine Ratio 11 Ratio (12-20); Bilirubin,Total 1.8 mg/dL (0.3-1.2); Blood Urea Nitrogen 11 mg/dL (9-23); Calcium 8.3 mg/dL (8.3-10.6); Calcium (Corrected) 8.7 mg/dL (8.5-10.1); Carbon Dioxide 25.4 mMol/L (20.0-31.0); Chloride 108 mMol/L (98-107); Estimated Creatinine Clearance 51.4 mL/min (>60); Globulin 2.2 gm/dL (2.3-3.5); Glucose 88 mg/dL (74-106); Magnesium 2.1 mg/dL (1.6-2.6); Osmolality,Calculated 281 (275-295); Phosphorous 3.5 mg/dL (2.4-5.1); Potassium 3.8 mMol/L (3.4-5.1); Sodium 142 mMol/L (136-145); Total Protein 5.7 gm/dL (5.7-8.2); eGFR > 60 See Note
[2025-01-08 07:25] VITALS: BP 130/63; PULSE 63; RESP 14; TEMP 36.8; O2SAT 94
[2025-01-08] MEDS: ATORVASTATIN CALCIUM 10 MG TABLET PO (09:48)
[2025-01-08] MEDS: CIPROFLOXACIN HCL 250 MG TABLET 500 MG PO (09:49)
[2025-01-08] MEDS: CALCIUM CARBONATE 600 MG TABLET PO (09:49)
--- NOTE | 2025-01-08 10:37 | ESDS_ITS ---
<Statement entered by Isabel Heller DO - 01/09/25 11:56> I, Isabel Heller DO, attest that I was physically present for the almanza portions of the service and evaluated the patient with the resident and I reviewed and discussed the case with the resident and agree with the resident's findings and plans of care as documented above Planned Discharge Date 01/08/25 DS: Providers Provider Date of admission: 01/04/25 13:37 Primary care physician: Saulo Garcia MD Admitting Provider: Isabel Heller DO Attending Provider on Admission: Isabel Heller DO Consults: 01/04/25 21:10 Referral Infection Control Routine Comment: Reason for Infection Control Referral: Admitted with Diarrhea Health [facility] Referral - Transportation Routine Comment: Positive screening for transportation needs. 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 Patient was admitted for acute diarrhea likely of infectious etiology. During hospital stay patient had workup for acute diarrhea found to be negative and was treated with IV fluids and antibiotic therapy. Patient was found with prostatomegaly however patient was passing urine and was monitored. 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 Patient also had colonoscopy which showed hemorrhoids and erythematous patches in the ascending, descending colon and rectum for which biopsies were taken. At this time patient is medically stable for discharge. Patient should continue ciprofloxacin and Flagyl for 6 more days. Follow-up with primary care physician within 1 week of discharge. Follow up with gastroenterology within 2 weeks of discharge to follow on biopsy results. Should any symptoms recur or worsen patient is instructed to return to the ED. Problem list: #Acute diarrhea-resolved #Acute bacterial colitis #Prostatomegaly with urinary retention #Hyperbilirubinemia #Hyperlipidemia Case discussed with my attending Dr. Pina Oliveros MD PGY-1 Status at Discharge Functional status at discharge: independent ambulation Overall status at discharge: patient is back to baseline Time Spent with Patient Time attestation: Total time spent providing and/or coordinating discharge services: Time spent: Greater than 30 minutes Exam Vital Signs Temp Pulse Resp BP Pulse Ox O2 Del Method O2 Flow Rate 98.3 F 63 14 130/63 94 L Room Air 2 01/08/25 07:25 01/08/25 07:25 01/08/25 07:25 01/08/25 07:25 01/08/25 07:25 01/08/25 07:01/07/25 21:10 Narrative Exam Physical Exam GENERAL: NAD, AAOx3 HEENT: Moist mucosa. Eyes open, symmetrical, & clear CARDIO: Heart RRR, no obvious murmurs PULM: No noted coughing/dyspnea CTA B/L, no R/W/R GI: Abdomen soft, nondistended, no pain on palpation. BSx4 SKIN/MSK/EXT: No wounds/rashes/edema/amputations, no pain on palpation. Pedal pulses present B/L NEURO: AAOx3, no focal neuro deficits, able to move all 4 extremities Discharge Plan Plan Patient Disposition: HOME (Self Care) Patient condition on transfer: Stable Care Plan Goals: Follow up with PCP within 1 week of discharge Follow up with Bid Manager Dr. Carcamo within 2 weeks of discharge for results of biopsies Continue to take antibiotics metronidazole and ciprofloxacin for 6 more days. Should any symptoms recur or worsen patient is instructed to return to the ED Consulte con hsu m?dico de atenci?n primaria dentro de la semana posterior al thor. Consulte con el gastroenter?logo Dr. Carcamo [phone] dentro de las 2 semanas posteriores al thor para obtener los resultados de las biopsias. Contin?e tomando los antibi?ticos metronidazol y ciprofloxacino leonila 6 d?as m?s. Si los s?ntomas reaparecen o empeoran, se le indica al paciente que regrese a urgencias. Prescriptions/Referrals Prescriptions/Med Rec: New ciprofloxacin HCl 500 mg tablet 500 mg PO BID 6 Days Qty: 12 0RF pantoprazole 40 mg tablet,delayed release (DR/EC) 40 mg PO QDAY Qty: 30 0RF metronidazole 500 mg tablet 500 mg PO BID 6 Days Qty: 12 0RF Continued atorvastatin 20 mg Tablet 10 mg PO QDAY loratadine [Claritin] 10 mg Tablet 10 mg PO QDAY misoprostol 200 mcg tablet 100 mcg PO QDAY Referrals: Saulo Garcia MD [Primary Care Provider] - Patient/Caregiver Discharge Instructions Print Language: Citizen [place] Stand Alone Forms: Julee Award Info., Patient Portal Info Letter Discharge Order Discharge Orders: Discharge (Routine); Ordered 01/08/25 Ordered By: Vern Oliveros Quality Discharge Quality Measures VTE prophylaxis
--- NOTE | 2025-01-08 11:19 | PC.SS ---
Addendum entered by TIN Cabezas 01/08/25 15:16: SS follow up: patient requesting Home health for nursing per bedside RN. Notified medical team during rounds. Patient to d/c home today. Original Note: SS update: plan is to d/c the patient home today.
[2025-01-08 11:55] VITALS: BP 152/68; PULSE 65; RESP 15; TEMP 36.8; O2SAT 94
--- NOTE | 2025-01-08 13:51 | PC.NURSE ---
Pt requesting to talk to ss in regards to home health needs prior to dc. Per Yoselin ss will come see pt along with MD to provide resources prior to discharge.
--- NOTE | 2025-01-08 15:43 | PC.CC ---
Addendum entered by Lolly Perez RN 01/08/25 18:39: [facility], [facility] states they can accept if [facility] declines, [facility] office is closed, Danna states she will tell the office first thing in the morning Addendum entered by Lolly Perez RN 01/08/25 18:21: Referrals sent for HH waiting for responses Original Note: [facility], no HH agency preferance documented
[2025-01-08 16:00] VITALS: BP 140/75; PULSE 65; RESP 15; TEMP 36.7; O2SAT 94
[2025-01-09 06:51] LABS: Giardia Result NOT DETECTED
--- NOTE | 2025-01-09 07:38 | PC.CC ---
Addendum entered by Radha Gan RN 01/09/25 09:58: Start of care date with [facility] will be 01/12/25. Original Note: [facility] accepted [facility] pt. [facility]. Pending start of care date.
[2025-01-12 07:24] LABS: Calprotectin, Stool* 59 mcg/g
[2025-01-14 06:46] LABS: ANCA Screen NEGATIVE (NEGATIVE); Myeloperoxidase Ab <1.0 AI (<1.0); Proteinase-3 Ab <1.0 AI (<1.0)
== END 2025-01-08 17:15 | disposition home or self-care (01) | DRG 391 ==
LOC: SERX 13:18 → SERHOLD 14:06 → S3SX 20:45
PROVIDERS: Nurse Practitioner Family; Specialist; Student in an Organized Health Care Education/Training Program; Admitting Provider Internal Medicine; Emergency Provider Emergency Medicine; PCP Family Medicine; Visit Provider Internal Medicine
PROC: 0DJ08ZZ Inspection of Upper Intestinal Tract, Via Natural or Artificial Opening Endoscopic (ICD-10-PCS; CPT 43239; principal; 2025-01-06 17:00)
PROC: 0DJD8ZZ Inspection of Lower Intestinal Tract, Via Natural or Artificial Opening Endoscopic (ICD-10-PCS; CPT 45378; principal; 2025-01-07 20:15)
DX: A09 Infectious gastroenteritis and colitis, unspecified (principal); K29.71 Gastritis, unspecified, with bleeding; K56.3 Gallstone ileus; K63.2 Fistula of intestine; E78.5 Hyperlipidemia, unspecified; N40.1 Benign prostatic hyperplasia with lower urinary tract symptoms; K22.70 Barrett's esophagus without dysplasia; K80.50 Calculus of bile duct without cholangitis or cholecystitis without obstruction; A04.9 Bacterial intestinal infection, unspecified; R33.8 Other retention of urine; K64.9 Unspecified hemorrhoids; Z90.49 Acquired absence of other specified parts of digestive tract; Z87.891 Personal history of nicotine dependence; Z79.899 Other long term (current) drug therapy
CPT/HCPCS: 36415; 74177; 76705; 80053; 81001; 83605; 83735; 83993; 84100; 85025; 85610; 85652; 85730; 86021; 86036; 86140; 86850; 86900; 86901; 87015; 87040; 87045; 87046; 87205; 87329; 87493; 87899; 96365; 96367; 99285; A4217; A4649; J1200; J2250; J2543; J3010; J3490; J7120; Q9967; A9270; J1836